=== PATIENT | male | born 1955 | race Asian ===

== ENCOUNTER → 2020-07-23 10:17 | Outpatient (BNVA) | payer MEDICARE, OTHER, SELFPAY | PROVIDERS: PCP Family Medicine; Referring Provider Family Medicine; Visit Provider Internal Medicine Endocrinology, Diabetes & Metabolism | DX: E11.65 Type 2 diabetes mellitus with hyperglycemia (principal); E11.22 Type 2 diabetes mellitus with diabetic chronic kidney disease; I12.9 Hypertensive chronic kidney disease with stage 1 through stage 4 chronic kidney disease, or unspecified chronic kidney disease; N18.30 Chronic kidney disease, stage 3 unspecified; E11.42 Type 2 diabetes mellitus with diabetic polyneuropathy; Z79.4 Long term (current) use of insulin; E78.2 Mixed hyperlipidemia; E55.9 Vitamin D deficiency, unspecified; Z79.899 Other long term (current) drug therapy | CPT/HCPCS: 99212 ==

== ENCOUNTER → 2021-10-30 15:35 | Outpatient (BNVA) | payer MEDICARE, OTHER, SELFPAY | PROVIDERS: PCP Family Medicine; Visit Provider Internal Medicine Endocrinology, Diabetes & Metabolism | DX: E11.65 Type 2 diabetes mellitus with hyperglycemia (principal); E11.22 Type 2 diabetes mellitus with diabetic chronic kidney disease; N18.30 Chronic kidney disease, stage 3 unspecified; E11.40 Type 2 diabetes mellitus with diabetic neuropathy, unspecified; E11.319 Type 2 diabetes mellitus with unspecified diabetic retinopathy without macular edema | CPT/HCPCS: 82947; 83036; 99212 ==

== ENCOUNTER → 2022-01-01 13:58 | Outpatient (BNVA) | payer MEDICARE, OTHER, SELFPAY | PROVIDERS: PCP Family Medicine; Visit Provider Registered Nurse Diabetes Educator | DX: E11.65 Type 2 diabetes mellitus with hyperglycemia (principal); Z71.89 Other specified counseling | CPT/HCPCS: 99211 ==

== ENCOUNTER → 2022-02-12 14:50 | Outpatient (BNVA) | payer MEDICARE, OTHER, SELFPAY | PROVIDERS: PCP Family Medicine; Visit Provider Registered Nurse Diabetes Educator | DX: E11.65 Type 2 diabetes mellitus with hyperglycemia (principal); Z79.4 Long term (current) use of insulin | CPT/HCPCS: 99211 ==

== ENCOUNTER → 2022-03-19 13:54 | Outpatient (BNVA) | payer MEDICARE, OTHER, SELFPAY | PROVIDERS: PCP Family Medicine; Visit Provider Registered Nurse Diabetes Educator | DX: E11.42 Type 2 diabetes mellitus with diabetic polyneuropathy (principal); E11.22 Type 2 diabetes mellitus with diabetic chronic kidney disease; I12.9 Hypertensive chronic kidney disease with stage 1 through stage 4 chronic kidney disease, or unspecified chronic kidney disease; N18.30 Chronic kidney disease, stage 3 unspecified; Z79.4 Long term (current) use of insulin | CPT/HCPCS: 99211 ==

== ENCOUNTER 2022-03-26 09:47 | Outpatient (REF) | payer MEDICARE, OTHER, SELFPAY ==
[2022-03-26 11:32] LABS: Anion Gap 11 (12-20); Blood Urea Nitrogen 15 mg/dL (9-16); Calcium 9.1 mg/dL (8.4-10.2); Carbon Dioxide 24 mmol/L (22-29); Chloride 105 mmol/L (96-108); Cholesterol 205 mg/dL; Estimated Glomerular Filt Rate 44; Glucose Random 123 mg/dL (60-115); HDL Cholesterol 23 mg/dL; LDL Cholesterol Calculated 116 mg/dl; Potassium 4.3 mmol/L (3.3-5.1); Sodium 136 mmol/L (135-145); Triglycerides 330 mg/dL
[2022-03-26 11:39] LABS: Creatinine Urine 71.66 mg/dL; Microalbum/Creatinine Ratio Ur 33.4 ug/mg cr
== END 2022-03-26 09:48 | disposition home or self-care (01) ==
LOC: HO.LAB 09:47
PROVIDERS: PCP Family Medicine; Visit Provider Internal Medicine Endocrinology, Diabetes & Metabolism
DX: E11.65 Type 2 diabetes mellitus with hyperglycemia (principal)
CPT/HCPCS: 36415; 80048; 80061; 82043

== ENCOUNTER → 2022-03-31 15:14 | Outpatient (BNVA) | payer MEDICARE, OTHER, SELFPAY | PROVIDERS: PCP Family Medicine; Visit Provider Internal Medicine Endocrinology, Diabetes & Metabolism | DX: E11.65 Type 2 diabetes mellitus with hyperglycemia (principal); E78.2 Mixed hyperlipidemia | CPT/HCPCS: 82947; 99212 ==

== ENCOUNTER → 2022-04-16 13:49 | Outpatient (BNVA) | payer OTHER, SELFPAY | PROVIDERS: PCP Family Medicine; Visit Provider Registered Nurse Diabetes Educator | DX: E11.42 Type 2 diabetes mellitus with diabetic polyneuropathy (principal) | CPT/HCPCS: 99211 ==

== ENCOUNTER 2022-07-10 15:21 | Outpatient (REF) | payer OTHER, SELFPAY ==
--- NOTE | ~2022-07-10 | CT_ITS ---
EXAMINATION: CT CHEST SCREENING CLINICAL INFORMATION: Current smoker. 48 pack year history. COMPARISON: Previous chest x-ray January 2012. TECHNIQUE: Multidetector volumetric CT imaging of the chest is performed without contrast using low dose technique. Additional 2D coronal and sagittal reformatted images and axial 3D maximum intensity projection (MIP) images are generated on the CT workstation. This CT examination was performed using dose optimization techniques as appropriate, variously including the following: *Automated exposure control *Adjustment of mA and/or kV according to patient size (this includes techniques or standardized protocols for targeted exams where dose is matched to indication/reason for exam; i.e. extremities or head) *Use of iterative reconstruction technique DLP: 242 mGy-cm FINDINGS: LUNGS: 2 mm calcified right upper lobe nodule axial image 199 series 5. A 2 mm noncalcified right lower lobe peripheral nodule axial image 373 series 5. MEDIASTINUM: The mediastinum is normal. CORONARY ARTERY CALCIFICATION: Moderate. PLEURA: There is no pleural effusion. No pleural mass or thickening. AXILLA: No lymphadenopathy. UPPER ABDOMEN: Cirrhotic-appearing liver. Two low-attenuation measuring 1 cm high in the dome of the right lobe axial image 5 and lateral segment of the left lobe axial image 55 series 3. These may represent cysts when compared with previous ultrasound July 2018. OSSEOUS STRUCTURES: Degenerative changes of the spine. CT/CT lung screening IMPRESSION: Two small pulmonary nodules or micronodules. Moderate coronary artery calcification. Cirrhotic-appearing liver. Two liver lesions, question corresponding to cysts seen by ultrasound. Previous abdominal ultrasound July 2018. ASSESSMENT: Lung-RADS category 2S: Probably benign. S for liver lesions. Follow-up liver MRI should be considered. RECOMMENDATION: Annual low-dose chest CT followup recommended.
== END 2022-07-10 15:22 | disposition home or self-care (01) ==
LOC: HO.CT 15:21
PROVIDERS: PCP Family Medicine; Visit Provider Physician Assistant Medical
DX: Z12.2 Encounter for screening for malignant neoplasm of respiratory organs (principal); F17.210 Nicotine dependence, cigarettes, uncomplicated
CPT/HCPCS: 71271; G0296

== ENCOUNTER → 2022-07-28 15:01 | Outpatient (BNVA) | payer OTHER, SELFPAY | PROVIDERS: PCP Family Medicine; Visit Provider Internal Medicine Endocrinology, Diabetes & Metabolism | DX: E11.65 Type 2 diabetes mellitus with hyperglycemia (principal); E78.2 Mixed hyperlipidemia | CPT/HCPCS: 82947; 83036; 99212 ==

== ENCOUNTER → 2022-08-03 14:45 | Outpatient (BNVA) | payer OTHER, SELFPAY | PROVIDERS: PCP Family Medicine; Visit Provider Registered Nurse Diabetes Educator | DX: E11.42 Type 2 diabetes mellitus with diabetic polyneuropathy (principal); Z79.4 Long term (current) use of insulin | CPT/HCPCS: 99211 ==

== ENCOUNTER → 2022-08-27 14:49 | Outpatient (BNVA) | payer OTHER, SELFPAY | PROVIDERS: PCP Family Medicine; Visit Provider Registered Nurse Diabetes Educator | DX: E11.65 Type 2 diabetes mellitus with hyperglycemia (principal); E11.22 Type 2 diabetes mellitus with diabetic chronic kidney disease; N18.30 Chronic kidney disease, stage 3 unspecified; E11.42 Type 2 diabetes mellitus with diabetic polyneuropathy; Z79.4 Long term (current) use of insulin | CPT/HCPCS: 99211 ==

== ENCOUNTER 2022-08-28 09:00 | Outpatient (REF) | payer OTHER, SELFPAY ==
--- NOTE | ~2022-08-28 | US_ITS ---
EXAMINATION: US ABDOMEN COMPLETE CLINICAL INFORMATION: Fatty liver. COMPARISON: Ultrasound abdomen complete 08/10/2018 and 12/04/2016. TECHNIQUE: Real-time imaging of the abdominal viscera. FINDINGS: PANCREAS: Normal. ABDOMINAL AORTA: The proximal, mid, and distal segments are normal in caliber. INFERIOR VENA CAVA: Visualized portions are normal. LIVER: The liver is normal in size. The liver contour is normal. There is an anechoic cyst left hepatic lobe measuring 1.4 x 1.0 x 1.1 cm and right lower lobe measuring 0.9 x 0.7 x 0.9 cm. There is no intrahepatic biliary duct dilatation seen. GALLBLADDER: Normal. The gallbladder is physiologically distended without evidence of stones, sludge, polyps, wall thickening or pericholecystic fluid. COMMON BILE DUCT: Normal in caliber measuring 0.36 cm in diameter. RIGHT KIDNEY: There is an anechoic cyst midpole measuring 1.0 x 0.6 x 0.6 cm. An anechoic cyst is seen in lower pole measuring 0.6 x 0.3 x 0.4 cm. No hydronephrosis or renal calculi. The kidney measures 9.4 cm in maximum dimension. LEFT KIDNEY: There is an anechoic cyst in midpole measuring 0.5 x 0.4 x 0.5 cm. There is normal cortical thickness. No hydronephrosis or renal calculie kidney measures 11.1 cm in maximum dimension. SPLEEN: Normal. The spleen measures 9.5 cm in maximum dimension. FREE FLUID: None. US/US abdomen complete IMPRESSION: Bilateral simple renal cyst. No echogenic stones or hydronephrosis. Hepatic cyst.
== END 2022-08-28 09:01 | disposition home or self-care (01) ==
LOC: HO.US 09:00
PROVIDERS: Visit Provider Family Medicine
DX: K76.0 Fatty (change of) liver, not elsewhere classified (principal); K76.9 Liver disease, unspecified
CPT/HCPCS: 76700

== ENCOUNTER → 2022-09-16 13:52 | Outpatient (BNVA) | payer OTHER, SELFPAY | PROVIDERS: PCP Family Medicine; Visit Provider Registered Nurse Diabetes Educator | DX: E11.42 Type 2 diabetes mellitus with diabetic polyneuropathy (principal) | CPT/HCPCS: 99211 ==

== ENCOUNTER → 2022-10-29 15:00 | Outpatient (BNVA) | payer OTHER, SELFPAY | PROVIDERS: PCP Family Medicine; Visit Provider Internal Medicine Endocrinology, Diabetes & Metabolism | DX: E11.65 Type 2 diabetes mellitus with hyperglycemia (principal); E78.2 Mixed hyperlipidemia; Z79.4 Long term (current) use of insulin | CPT/HCPCS: 82947; 83036; 99212 ==

== ENCOUNTER → 2023-03-02 15:08 | Outpatient (BNVA) | payer OTHER, SELFPAY | PROVIDERS: PCP Family Medicine; Visit Provider Internal Medicine Endocrinology, Diabetes & Metabolism | DX: E11.65 Type 2 diabetes mellitus with hyperglycemia (principal); E11.22 Type 2 diabetes mellitus with diabetic chronic kidney disease; N18.30 Chronic kidney disease, stage 3 unspecified; E11.42 Type 2 diabetes mellitus with diabetic polyneuropathy; E78.2 Mixed hyperlipidemia; Z79.4 Long term (current) use of insulin; Z79.899 Other long term (current) drug therapy | CPT/HCPCS: 82947; 83036; 99212 ==

== ENCOUNTER 2023-05-04 16:43 | Outpatient (REF) | payer OTHER, SELFPAY ==
[2023-05-04 18:29] LABS: Anion Gap 13 (12-20); Blood Urea Nitrogen 9 mg/dL (9-16); Calcium 10.3 mg/dL (8.4-10.2); Carbon Dioxide 26 mmol/L (22-29); Chloride 106 mmol/L (96-108); Cholesterol 204 mg/dL (<200); Estimated Glomerular Filt Rate 49; Glucose Random 67 mg/dL (60-115); HDL Cholesterol 24 mg/dL (>40); Sodium 141 mmol/L (135-145); Triglycerides 433 mg/dL (<150)
== END 2023-05-04 16:44 | disposition home or self-care (01) ==
LOC: HO.LAB 16:43
PROVIDERS: PCP Family Medicine; Visit Provider Internal Medicine Endocrinology, Diabetes & Metabolism
DX: E11.65 Type 2 diabetes mellitus with hyperglycemia (principal); E78.2 Mixed hyperlipidemia
CPT/HCPCS: 36415; 80048; 80061

== ENCOUNTER 2023-12-14 14:23 | Outpatient (AMB) | payer OTHER, SELFPAY ==
--- NOTE | 2023-12-14 14:27 | MHC.OFFVIS ---
Intake Vital Signs 12/14/23 14:28 Height 5 ft 4 in Weight 164 lb 3.91 oz BMI 28.2 BP 122/60 Blood Pressure Location Lt brachial Position Sitting Pulse 90 Pulse Source Pulse Oximeter Intake Visit Reasons: f/u Type 2 DM-confirmed Intake Note: Patient present today to follow up on Type 2 Diabetes Mellitus. Patient receives DME supplies through: [place] Last Diabetic Eye exam: 07/2023 Last Podiatry Visit: Doesn't have one Random Glucose: 221 mg/dl HgA1C: 7.9% Fitter'S Assistant Required: No Accompanied by: Self / Same As Patient Allergies rifampin [RIFAMPIN] Allergy (Unknown, Verified 12/14/23 14:33) LIVER PROBLEMS Medication List - Last Reconciled 12/14/23 by Brijesh Encinas MD albuterol sulfate 90 mcg/actuation (Proventil HFA) 2 puffs inhalation Q6H PRN amlodipine 10 mg PO DAILY blood sugar diagnostic (FreeStyle Lite Strips) As directed blood-glucose meter ([employer] Ultra2 Meter) As directed blood-glucose meter,continuous (Dexcom G6 [place] Cleaner) As directed blood-glucose sensor (Dexcom G6 Sensor device) As directed blood-glucose transmitter (Dexcom G6 Transmitter device) As directed cholecalciferol (vitamin D3) 1,250 mcg PO QWEEK insulin aspart U-100 (Novolog FlexPen U-100 Insulin aspart) 5-30 units before meals subcut 3 times a day; 30 days insulin degludec (Tresiba FlexTouch U-100 insulin) 40 units (0.4 mL) subcut DAILY lancets (TRUEplus Lancets) As directed lisinopril 40 mg PO DAILY metoprolol succinate ER 100 mg PO DAILY omega 3-rei-cas-fish oil 300 mg (120 mg- 180mg)-1,000 mg ea PO omega-3 fatty acids (Fish Oil Concentrate) 1,000 mg PO BID 30 days omeprazole 40 mg PO QAM pen needle, diabetic (BD Sarah 2nd Gen Pen Needle) 5 times a day potassium chloride ER 20 mEq PO QAM rosuvastatin (Crestor) 20 mg PO DAILY tamsulosin 0.4 mg PO DAILY HPI HPI Comments History of Present Illness Details 68-year-old male, here for diabetes management . He is feeling well. Is experience of some constipation perhaps from the Ozempic but is tolerate He has DM type 2 diagnosed 1993. His sister and grandfather have type 2 diabetes He is currently using Tresiba 40 units in am and Novolog 25 base -30 with breakfast , with lunch and dinner . He has been doing corrections after 2h 5-10 units. States taking Farxiga 5 mg QD Off Ozempic 0.5 mg q.week because of constipation .Couldn't tolerate Trulicity Dexcom download shows average point care to be 176 and stand deviation 58. 60% range with 39% hyperglycemia and <1% hypoglycemia . Pattern shows post-breakfast and post-dinner hyperglycemia Rare hypoglycemia He has all microvascular complications, + retinopathy, + nephropathy, + neuropathy, no CVA, CAD, PVD. Last ophthalmology evaluation: 6 mos a go , no need for photocoagulation or VEGF therapy. Denies Nocturia, + numbness, tingling in feet and hands, denies polyuria, polydipsia. He denies weight gain. He Is complaining of leg swelling He had normal gastric emptying study. Laboratory Tests 03/21/19 10/11/19 02/13/20 14:23 10:20 14:36 Hgb Hct Sodium 139 Potassium 3.9 Creatinine 1.75 H Est GFR (Non-Af Am er) 39 POC Glucose 187 H Fasting Glucose 217 H Hgb A1c Fingerstic k 9.3 Calcium 9.2 AST 29 ALT 37 Alkaline Phosphata se 84 Albumin 4.2 Triglycerides 337 D Cholesterol 183 D LDL Cholesterol Di rect LDL Cholesterol, C alc 93 HDL Cholesterol 23 25-OH Vitamin D To trell 27.6 Ur Random Creatini ne Ur Random Microalb umin Microalb/Creat Rat io U Total Protein mg /dL Protein/Creatinin Ratio 02/13/20 02/13/20 02/13/20 14:36 14:36 15:00 Hgb 14.1 Hct 41.9 L Sodium Potassium Creatinine Est GFR (Non-Af Am er) POC Glucose Fasting Glucose Hgb A1c Fingerstic k Calcium AST ALT Alkaline Phosphata se Albumin Triglycerides Cholesterol LDL Cholesterol Di rect 93 LDL Cholesterol, C alc HDL Cholesterol 25-OH Vitamin D To trell Ur Random Creatini ne 142.99 Ur Random Microalb umin 124.0 Microalb/Creat Rat io 86.7 U Total Protein mg /dL 32 H Protein/Creatinin Ratio 0.22 H . [facility] Medical History (Updated 07/20/22 @ 08:19 by Tanya Hall PA-C) Nicotine dependence, cigarettes, uncomplicated Vitamin D deficiency Mixed hyperlipidemia Hypertension Diabetic polyneuropathy associated with type 2 diabetes mellitus CKD stage 3 due to type 2 diabetes mellitus retirement (current) use of insulin Diabetes type 2, uncontrolled Hypertriglyceridemia Surgical History History of endoscopy Family History Father No problems noted. Mother Hypertension Social History Household Members: Spouse Alcohol intake: current Alcohol intake frequency: does not drink Patient Tobacco Use Status: Current everyday Tobacco user Years Smoked: (onset 20yo, 1/2ppd x 46yrs, 23pyh) Physical Exam Vital Signs: Last Vital Signs Pulse 90 12/14/23 14:28 BP 122/60 12/14/23 14:28 BMI result Body Mass Index 28.2 Absence of Cushingoid features. Absence of acromegalic features. Neck exam reveals nl size thyroid about 15 gms. No thyroid nodules palpable. No carotid bruits present. Lungs CTA. Heart S1 S2, Reg R/R. No M/R/ G. Skin exam reveals absence of vitiligo or acanthosis nigricans. Abdominal exam reveals Soft NT/ND with NA BS. No organomegaly present. Neck Other: . Extrem Other: Visual exam of foot performed. No ulcerations or open lesions. No onchomycosis, no callouses.Pulses 2 + distally Sensation intact to monofilament exam. Vibratory sensation sensed is decreased with 128 Hz tuning fork Results AMB Hemoglobin A1c AMB Hemoglobin A1c 7.9 % Last Edit by ANT Fuentes on 12/14/23 14:52 Results Reviewed Results Reviewed: Laboratory Last Values Glucose (Clinic) 221 mg/dL (60-115) H 12/14/23 14:36 Assessment & Plan Assessment & Plan (1) Diabetes type 2, uncontrolled: Comment: (IDDM2, CKD3, polyneuropathy) Code(s): E11.65 - Type 2 diabetes mellitus with hyperglycemia Plan: This is a 68-year-old male with a history of type 2 diabetes being treated with basal-bolus insulin with good glycemic control and known microvascular complications namely CKD, retinopathy and neuropathy. . Plan is to increase base of Novolog before meals to 32 units Will have him follow-up with the environmental educator. Could consider adding Actos in future which would have a positive effect glycemic control and lowering triglycerides (2) Mixed hyperlipidemia: Code(s): E78.2 - Mixed hyperlipidemia Plan: On rosuvastatin 10 mg q.d. with LDL cholesterol and triglycerides not goal. On rosuvastatin 20 mg The plan is to check lipid profile . Once glycemic control is optimized if triglycerides remain elevated, could add Actos to diabetic regimen which would aid in reducing triglycerides as well Orders: Orders Lipid Panel Today E78.2 - Mixed hyperlipidemia Medications: New dapagliflozin propanediol (Farxiga) 5 mg PO DAILY 30 tabs 5RF Coding Level of Care Code Est Pt Level 4 (60563) Diagnoses Diabetes type 2, uncontrolled E11.65 Mixed hyperlipidemia E78.2
[2023-12-14 14:28] VITALS: BP 122/60; PULSE 90; BMI 28.2
[2023-12-14 14:51] LABS: Glucose, Whole Blood 221 mg/dL (60-115)
== END 2023-12-14 14:53 | disposition home or self-care (01) ==
PROVIDERS: PCP Family Medicine; Visit Provider Internal Medicine Endocrinology, Diabetes & Metabolism
DX: E11.65 Type 2 diabetes mellitus with hyperglycemia (principal); E78.2 Mixed hyperlipidemia; Z13.9 Encounter for screening, unspecified
CPT/HCPCS: 99214

== ENCOUNTER → 2023-12-14 14:23 | Outpatient (BNVA) | payer OTHER, SELFPAY | PROVIDERS: PCP Family Medicine; Visit Provider Internal Medicine Endocrinology, Diabetes & Metabolism | DX: E11.65 Type 2 diabetes mellitus with hyperglycemia (principal); E78.2 Mixed hyperlipidemia | CPT/HCPCS: 82947; 83036; 99212 ==